=== PATIENT | female | born 1960 | race Caucasian/White ===

== ENCOUNTER 2017-04-02 19:21 | Emergency (ER) | payer OTHER ==
[~2017-04-02] VITALS: Ht 152.4 cm; Wt 160.0 kg
[~2017-04-02 19:21] MED LIST: ADVAIR 250-501 EACH IH; ASPIRIN81 M1 PO; BUSPAR5 MG PO; CARDIZEM CD180 MG PO; COMBIVENT RESPIM4 GM IH; DILAUDID4 MG PO; FLONASE16 G1 NS; HYDROCHLOROTHIA25 MG PO; LAMICTAL100 MG PO; LASIX20 MG PO; METOPROLOL SUCC25 MG PO; MOTRIN600 MG PO; PAXIL20 MG PO; PEDIADERM TA 0115 GM TP; PROTONIX40 MG PO; SINGULAIR10 MG PO; SYMBICORT60 INHALAT IH; TRAZODONE HCL50 MG PO
[2017-04-02] MEDS ORDERED: PROMETHAZINE HC25 M1 PO (19:54)
[2017-04-02] MEDS ORDERED: LIDODERM 5% P1 PATCH TD (22:04)
[2017-04-02 22:13] VITALS: BP 116/72
== END 2017-04-02 22:15 | disposition home or self-care (01) ==
LOC: EME 19:21
DX: G89.29 Other chronic pain (principal); M54.5 Low back pain; M25.551 Pain in right hip; J45.909 Unspecified asthma, uncomplicated; F32.9 Major depressive disorder, single episode, unspecified
CPT/HCPCS: 72100; 99281; 99284; J1885

== ENCOUNTER → 2018-07-11 | Outpatient (CLI) | payer OTHER ==
[~2018-07-11] VITALS: Ht 152.4 cm; Wt 136.0 kg
[~2018-07-11] MED LIST changes: +ADVAIR 250/501 DISK IH; -ASPIRIN81 M1 PO; +ASPIRIN81 M2 PO; +BENADRYL25 MG PO; +DILAUDID8 MG PO; +K-DUR20 MEQ PO; +KENALOG,ARISTOC80 GM TP; +LAMICTAL150 M1 PO; +LIDOCAINE PAIN1 EACH TP; +LIDOCAINE TP; +LIDODERM 5% P1 PATCH TD; +MOTION SICKNESS25 M1 PO; +PROMETHAZINE HC25 M1 PO; +PROZAC20 MG PO; +TOPROL XL25 MG PO; +ZANAFLEX4 M1 PO
[2018-07-11 09:56] LABS: HEMATOCRIT 39.5 % (36.0-46.0)
[2018-07-11 10:29] LABS: CHLORIDE 105 MEQ/L (99-109); CREATININE 0.5 MG/DL (0.6-1.3); GFR ESTIMATE (CALCULATED) > 59 mL/min/; GLUCOSE 101 mg/dL (70-99); POTASSIUM 4.8 MEQ/L (3.7-5.4); SODIUM 139 MEQ/L (136-147); UREA NITROGEN (BUN) 13 mg/dL (9-23)
== END | disposition home or self-care (01) ==
LOC: AMB 08:41
PROVIDERS: Anesthesiology
DX: Z12.11 Encounter for screening for malignant neoplasm of colon (principal); D12.5 Benign neoplasm of sigmoid colon; D12.3 Benign neoplasm of transverse colon; D12.2 Benign neoplasm of ascending colon; K57.30 Diverticulosis of large intestine without perforation or abscess without bleeding
CPT/HCPCS: 80048; 85014; 85018; 88305; 93005; J2250